=== PATIENT | male | born 1950 | race Caucasian/White ===

== ENCOUNTER 2023-02-08 06:39 | Day surgery (SDC) | payer MEDICARE, OTHER ==
[~2023-02-08] VITALS: Ht 188 cm; Wt 109.4 kg
[2023-02-08] VITALS (7 sets, daily range): BP systolic 95–142; BP diastolic 50–71; PULSE 52–65; RESP 12–15; TEMP 98.2; O2SAT 92–95
[2023-02-08] MEDS ORDERED: cefazolin 2gm/D5W 100mL 100 ML IV ONE (07:00)
[2023-02-08] MEDS ORDERED: normal saline 1000ml 1,000 ML IV SCH ×2 (07:00→11:20)
[2023-02-08] MEDS ORDERED: vancomycin 1,500 MG in NS 300ml IV soln IV ONE (07:00)
[2023-02-08] MEDS ORDERED: MULT-1085 PO (07:41)
[2023-02-08] MEDS ORDERED: POTA-206 (07:41)
[2023-02-08] MEDS ORDERED: METO5TAB7 PO (07:41)
[2023-02-08] MEDS ORDERED: FURO20TA4 PO (07:41)
[2023-02-08 07:51] LABS: BASOPHILS # (AUTO) 0.1 X10'3 (0-0.2); BASOPHILS % (AUTO) 1.4 % (0-1); EOSINOPHILS # (AUTO) 0.1 X10'3 (0-0.9); EOSINOPHILS % (AUTO) 1.1 % (0-6); HEMATOCRIT 41.4 % (42.0-52.0); HEMOGLOBIN 13.6 g/dl (14.0-17.9); LYMPHOCYTES # (AUTO) 0.9 X10'3 (1.1-4.8); LYMPHOCYTES % (AUTO) 17.8 % (21-51); MEAN CORPUSCULAR HEMOGLOBIN 34.5 PG (27.0-31.0); MEAN CORPUSCULAR HGB CONC 32.9 g/dL (33.0-36.5); MEAN CORPUSCULAR VOLUME 104.8 FL (78-98); MEAN PLATELET VOLUME 8.5 FL (7.4-10.4); MONOCYTES # (AUTO) 0.5 X10'3 (0-0.9); MONOCYTES % (AUTO) 9.8 % (2-12); NEUTROPHILS # (AUTO) 3.4 X10'3 (1.8-7.7); NEUTROPHILS % (AUTO) 69.9 % (42-75); PLATELET COUNT 140 X10'3 (140-440); RED BLOOD COUNT 3.95 X10'6 (4.70-6.10); RED CELL DISTRIBUTION WIDTH 15.6 % (11.5-14.5); WHITE BLOOD COUNT 4.9 X10'3 (4.5-11.0)
[2023-02-08 08:19] LABS: PROTHROMBIN TIME 11.2 SECONDS (9.0-12.0)
[2023-02-08] MEDS ORDERED: midazolam 1 mg/ML 2ml injection ONE ×2 (09:02→10:02)
[2023-02-08] MEDS ORDERED: vancomycin 1,000mg inj ONE (09:02)
[2023-02-08] MEDS ORDERED: LIDOcaine 1% W/epiNEPHrine 1:100,000 20ml vial ONE (09:02)
[2023-02-08] MEDS ORDERED: iohexol 350 MG/ML 50ML vial IV ONE (09:02)
[2023-02-08] MEDS ORDERED: fentaNYL/PF 50MCG/1 ML 2ML syringe ONE (09:02)
[2023-02-08 09:25] LABS: ALBUMIN 4.2 G/DL (3.4-5.0); ANION GAP 6 (8-16); BLOOD UREA NITROGEN 15 MG/DL (7-18); BUN/CREATININE RATIO 19.2 (10.0-20.0); CALCIUM 9.5 MG/DL (8.5-10.1); CHLORIDE 98 MMOL/L (99-107); CREATININE 0.78 MG/DL (0.60-1.10); GLUCOSE 100 MG/DL (70-104); POTASSIUM 3.8 MMOL/L (3.5-5.1); SODIUM 141 MMOL/L (135-145); eCRCL 98 ML/MIN; eGFR > 90 ML/MIN
== END 2023-02-08 13:00 | disposition home or self-care (01) ==
LOC: SSTAY O 06:39
PROVIDERS: ATTEND Internal Medicine Cardiovascular Disease
DX: I44.2 Atrioventricular block, complete (principal); I27.81 Cor pulmonale (chronic); E78.5 Hyperlipidemia, unspecified; I48.0 Paroxysmal atrial fibrillation; G47.30 Sleep apnea, unspecified; Z79.899 Other long term (current) drug therapy; Z72.89 Other problems related to lifestyle; Z82.49 Family history of ischemic heart disease and other diseases of the circulatory system; Z83.3 Family history of diabetes mellitus; Z82.5 Family history of asthma and other chronic lower respiratory diseases
CPT/HCPCS: 33208; 36415; 71045; 80048; 83735; 85025; 85610; 93005; 99152; 99153; C1785; C1898; J2250; J3010; J3370; J3490; J7030; Q9967; A4565; A4620; A6258; A6449